=== PATIENT | female | born 1980 | race Caucasian/White ===

== ENCOUNTER 2017-10-17 02:00 | Emergency (ER) | payer OTHER ==
[~2017-10-17] VITALS: Ht 170.2 cm; Wt 87.7 kg
[~2017-10-17 02:00] MED LIST: ALBUTEROL SULFAT3 M3 IH; ALBUTEROL0.83 MG/ML IH; ALBUTEROL1.25 MG/3 IH; ALLEGRA180 MG PO; AMBIEN 10MG10 MG PO; AMBIEN10 MG PO; AMOXICILLIN 50500 MG PO; ATOMOXETINE; COMBIVENT INH14.7 GM; CORDROL20 MG PO; EPI EZ PEN1 MG/ML IM; ESTRACE2 MG PO; FLEXERIL10 MG PO; GENTAMICIN EYE D5 ML OP; LAMICTAL; LORTAB 5/500 501 TAB PO; MOTRIN 800800 MG/TAB PO; MULTIPLE VITAMI1 CAP PO; MULTIPLE VITAMI1 TAB PO; MVI; NAPROSYN500 MG PO; NORCO 325 MG-51 TAB; NORCO 325 MG-51 TAB PO; PEPCID 20MG TAB20 MG PO; PERCOCET 325 MG1 TA2 PO; PERCOCET 5/321 UDTAB PO; PERCR 7.5 PO; PHENTERMINE15 MG; PHENTERMINE37.5 M1 PO; PREDNISONE20 M1 PO; PREDNISONE20 MG PO; PRENATAL1 TA1 PO; PROAIR HFA0.09 MG/AC IH; PROVENTIL0.09 MG/A1 IH; SINGULAIR10 MG PO; TAMIFLU 75MG75 MG PO; TEMAZEPAM; TRIAMCINOLONE AC0.13 TP; TUSS PO; TUSSIONEX PENNKI5 ML PO; TYLENOL ARTHRI650 M1; VALIUM 5MG T5 MG/TAB PO; VENTOLIN0.09 MG IH; VICODIN 5/5001 UDTAB PO; XANAX 0.5MG0.5 MG PO; XANAX0.25 MG PO; ZITHROMAX 250M250 MG PO; ZITHROMAX Z PA250 MG PO; ZITHROMAX500 M2 PO; ZOFRAN 4MG T4 MG/TAB PO; ZOLOFT 100MG100 MG PO; ZOLOFT100 MG PO
[2017-10-17 02:09] VITALS: BP 134/89; TEMP 98.8
[2017-10-17 03:04] LABS: INFLUENZA A NEGATIVE; INFLUENZA B NEGATIVE
[2017-10-17] MEDS ORDERED: ZITHROMAX500 M2 PO (03:13)
[2017-10-17] MEDS ORDERED: TESSALON PERLE200 MG PO (03:13)
[2017-10-17] MEDS ORDERED: PREDNISONE20 MG PO (03:13)
[2017-10-17] MEDS ORDERED: ALBUTEROL0.83 MG/ML IH (03:20)
[2017-10-17 03:25] VITALS: PULSE 105
== END 2017-10-17 03:25 | disposition home or self-care (01) ==
LOC: COL.ER 02:00
PROVIDERS: Physician Assistant
DX: J45.909 Unspecified asthma, uncomplicated (principal)
CPT/HCPCS: J7512

== ENCOUNTER 2020-07-06 06:35 | Emergency (ER) | payer OTHER, BC ==
[~2020-07-06] VITALS: Ht 165.1 cm; Wt 93.6 kg
[~2020-07-06 06:35] MED LIST changes: +TESSALON PERLE200 MG PO
[2020-07-06 06:37] VITALS: BP 135/92; TEMP 98.2
[2020-07-06] MEDS ORDERED: NORCO 325 MG-51 TAB PO (06:42)
[2020-07-06 08:40] VITALS: PULSE 83
== END 2020-07-06 08:40 | disposition home or self-care (01) ==
LOC: COL.ER 06:35
DX: S82.891A Other fracture of right lower leg, initial encounter for closed fracture (principal); X50.1XXA Overexertion from prolonged static or awkward postures, initial encounter; Y93.02 Activity, running
CPT/HCPCS: J1170; J1885; Q4045